=== PATIENT | male | born 1995 | race Two or more races ===

== ENCOUNTER → 2017-08-10 | Emergency (ER) | payer OTHER ==
[~2017-08-10] VITALS: Ht 180.3 cm; Wt 97.5 kg
[~2017-08-10] MED LIST: PHENAGIL CH TA1 EACH PO
== END | disposition home or self-care (01) ==
LOC: ER 21:08
DX: E16.1 Other hypoglycemia (principal); R00.2 Palpitations; F06.4 Anxiety disorder due to known physiological condition